=== PATIENT | male | born 1985 | race Caucasian/White ===

== ENCOUNTER 2018-09-20 20:35 | Emergency (ER) | payer BC ==
[2018-09-20] MEDS ORDERED: CEPHALEXIN 500 MG CAP PO ONE (21:25)
[2018-09-20] MEDS ORDERED: IBUPROFEN 600 MG TAB PO ONE (22:27)
[2018-09-20] MEDS ORDERED: HYDROCOD/APAP 5/325 PREPACK#6 BTL TAKEHOME ONE (22:27)
--- NOTE | 2018-09-20 22:30 | EDPHY ---
General Time Seen by Provider: 09/20/18 20:57 Narrative: CLINICAL IMPRESSION: Right hand hematoma ASSESSMENT/PLAN: 33-year-old [id number] male presents to the emergency department with right hand pain 6 hr after he accidentally shot a nail from a nail gun through the thenar eminence of the right hand. This was not a through and through laceration and he removed the nail himself. Patient has significant swelling to the thenar eminence with no associated erythema, warmth, crepitus. Full range of motion of thumb and fingers with moderate discomfort, normal flexion and extension of the wrist. Negative Kanavel sign. No clinical signs of compartment syndrome. X-ray show no evidence of foreign body or fracture. I suspect a muscle belly hematoma but have encouraged patient to follow up with Ortho Hand specialist in the next 24-48 hours for recheck. A referral was given. He was started on Keflex in the emergency department. Tetanus is up-to- date. Compression wrap, elevation and ice advised. Warning signs for return to ED sooner outlined in discharge papers. Case discussed with Dr. Alejandro. DIFFERENTIAL DX: Differential includes but not limited to acute fracture, strain/sprain, joint dislocation, soft tissue contusion ED PROCEDURES: Procedure: Splint placement. A compression bandage splint was applied to right hand by molecular technologist, supervised by myself. After application of the splint I returned and re-examined the patient. The splint was adequately immobilizing the joint and distal to the splint the patient's circulation and sensation was intact. ED COURSE: X-rays read viewed by myself, no evidence of fracture or foreign body. Reviewed with Dr. Alejandro. CHIEF COMPLAINT: Right hand swelling HPI: 33-year-old male right-hand dominant presents to the emergency department with complaints of right hand pain and swelling 6 hr after he accidentally shot his right hand with a nail gun. Patient reports the nail entered the hand but did not exit and he pulled the nail out himself. Tetanus is up-to-date. He reports swelling and discomfort to the hand. He is able to move the thumb and all fingers but with pain. Reports no numbness or loss of sensation to the fingers or hand. No fever or chills. PAST MEDICAL HISTORY: None reported Pertinent Past Surgical History: None reported Social History: Otherwise healthy REVIEW OF SYSTEMS: All other systems negative Constitutional: No fever, no chills Musculoskeletal: No deformity, + joint pain Skin: No rashes, color change or open wounds. Neurological: No sensory loss or weakness. PHYSICAL EXAM: General Appearance: Alert, oriented, appropriate for age, cooperative, NAD, well hydrated, non-toxic appearing, VSS, hypertensive, no hypoxia. Neurological: Alert and oriented x 3, normal sensation and strength of extremities Skin: Small puncture wound on the right thenar eminence. No exit wound. Musculoskeletal: Significant swelling of the right thenar eminence. No associated erythema or warmth. Flexion and extension of the wrist intact. Radial pulse intact. Limited abduction of the right thumb secondary to pain. Negative Kanavel sign. Distal 2 point discrimination intact, compartments soft. MEDICAL DECISION MAKING: Patient was seen independently. Secondary supervising physician at time of evaluation was Dr. Alejandro. Diagnosis: Right hand swelling. New, requires workup Summary: See assessment and plan for summary of ED visit Independent visualization of images, tracing, or specimens yes. Discussed patient with another provider: Dr. Alejandro Patient Progress: Improved, stable for discharge. - Diagnostics Imaging Results: Imaging Impressions Hand X-Ray 09/20/18 21:12 Impression: Probable old posttraumatic deformity of the distal metaphysis of the fifth metatarsal and questionable impaction deformity or less likely erosion of the third, fourth, and fifth metacarpal head. No evidence for an opaque foreign body or acute fracture. - History Smoking Status: Never smoked - Objective Vital Signs: Initial Vital Signs Temperature (C) 37.0 C 09/20/18 20:50 Heart Rate 95 09/20/18 20:50 Respiratory Rate 16 09/20/18 20:50 Blood Pressure 142/99 H 09/20/18 20:50 O2 Sat (%) 98 09/20/18 20:50 O2 Delivery Mode Room Air Allergies/Adverse Reactions: No Known Allergies Allergy (Unverified 09/20/18 20:50) Home Medications: Medication Instructions Recorded Cephalexin [Keflex] 500 mg PO QID #28 cap 09/20/18 Hydrocodone/APAP 5/325 [[place] 1 - 2 tab PO Q4H PRN #10 tab 09/20/18 5/325 (*)] Medications Given: Discontinued Medications Hydrocodone Bitart/Acetaminophen ([place] 5/325mg Prepack#6) 1 btl TAKEHOME EDNOW ONE Stop: 09/20/18 22:28 Last Admin: 09/20/18 22:40 Dose: 1 btl Cephalexin HCl (Keflex) 500 mg PO EDNOW ONE PRN Reason: Protocol Stop: 09/20/18 21:26 Last Admin: 09/20/18 21:27 Dose: 500 mg Ibuprofen (Motrin) 600 mg PO EDNOW ONE Stop: 09/20/18 22:28 Last Admin: 09/20/18 22:40 Dose: 600 mg Departure - Departure Disposition: Home, Routine, Self-Care Clinical Impression: Localized swelling on hand Condition: Good Instructions: Swollen Joint (ED) Additional Instructions: DISCHARGE INSTRUCTIONS FROM YOUR DOCTOR Thank you for visiting our emergency department today. You were treated by a physician esl instructional assistant today and your case was reviewed with our ED Attending physician. Please keep in mind that discharge from the emergency department does not mean that there is nothing wrong - it simply means that we have not identified an emergency condition that requires further evaluation or treatment in the hospital. You should always plan to follow up with primary care for re- evaluation of your condition in the next 2-3 days. If you have been referred to a specialist, please call as soon as possible (today or tomorrow) to schedule your follow up appointment at the appropriate time. THERE IS NO EVIDENCE OF RETAINED FOREIGN BODY, OR FRACTURE DETECTED ON X-RAY. SWELLING IS LIKELY SECONDARY TO A DEEP MUSCLE BELLY HEMATOMA. PLEASE ELEVATE AND ICE THE HAND TONIGHT. PAIN MEDICATION WAS GIVEN TO USE IF NEEDED. PLEASE FOLLOW UP WITH ORTHOPEDIC HAND SPECIALIST. A REFERRAL WAS GIVEN. TAKE ANTIBIOTICS DIRECTED. RETURN TO THE EMERGENCY DEPARTMENT IMMEDIATELY FOR SIGNIFICANT OR WORSENING SWELLING, SEVERE PAIN, LOSS OF SENSATION TO FINGERS, FEVERS GREATER THAN 100.4, OR ANY OTHER CONCERN. People present with illnesses and injuries in different ways, and it is always possible that we have missed something. You may always return for re-evaluation if symptoms worsen or if they are not improving or if you develop new/different symptoms. Again, thank you for choosing our emergency department. We hope that you feel better. Referrals: NONE *PRIMARY CARE P,. [Primary Care Provider] - As per Instructions Ashutosh Suarez MD [Medical Doctor] - 1-2 days without fail Prescriptions: Cephalexin [Keflex] 500 mg PO QID #28 cap Hydrocodone/APAP 5/325 [[place] 5/325 (*)] 1 - 2 tab PO Q4H PRN #10 tab PRN Reason: Pain, Moderate
[2018-09-20 22:49] VITALS: BP 144/111
== END 2018-09-20 22:48 | disposition home or self-care (01) ==
DX: M79.89 Other specified soft tissue disorders (principal); W29.4XXA Contact with nail gun, initial encounter